=== PATIENT | female | born 1955 | race Caucasian/White ===

== ENCOUNTER → 2016-12-15 | Outpatient (CLI) | payer BC ==
--- NOTE | 2016-12-16 11:54 | XR ---
Thoracic spine HISTORY: Mid back pain 3 views of the thoracic spine Thoracic vertebral bodies show preserved height, alignment, and bone mineralization. There is multile rosario spondylosis. Mild loss of disc height at the intervertebral levels at the midthoracic spine. IMPRESSION: Degenerative disc disease, thoracic MRI may be of benefit.
== END | disposition home or self-care (01) ==
LOC: RADXRMAIN 17:52
PROVIDERS: ATTEND Internal Medicine
DX: M51.34 Other intervertebral disc degeneration, thoracic region (principal)
CPT/HCPCS: 72072

== ENCOUNTER → 2017-10-14 | Outpatient (CLI) | payer BC ==
--- NOTE | 2017-10-18 08:35 | MM ---
Reason for exam: screening (asymptomatic). Last mammogram was performed 1 year ago. History: Patient is postmenopausal. Family history of breast cancer in sister at age 59. Physical Findings: A clinical breast exam by your physician is recommended on an annual basis and results should be correlated with mammographic findings. MG 3D Screening Mammo W/Cad Bilateral CC and MLO view(s) were taken. Prior study comparison: October 07, 2016, bilateral MG 3d screening mammo w/cad. October 06, 2015, bilateral MG screening mammo w CAD. The breast tissue is heterogeneously dense. This may lower the sensitivity of mammography. No significant changes when compared with prior studies. ASSESSMENT: Negative, BI-RAD 1 RECOMMENDATION: Routine screening mammogram of both breasts in 1 year.
== END | disposition home or self-care (01) ==
LOC: RADMAMWWP 07:45
PROVIDERS: ATTEND Obstetrics & Gynecology
DX: Z12.31 Encounter for screening mammogram for malignant neoplasm of breast (principal); Z80.3 Family history of malignant neoplasm of breast
CPT/HCPCS: 77063; G0202

== ENCOUNTER → 2018-06-21 | Outpatient (CLI) | payer BC ==
--- NOTE | 2018-06-21 11:18 | BD ---
EXAMINATION TYPE: Axial Bone Density DATE OF EXAM: 06/21/2018 COMPARISON: NONE CLINICAL HISTORY: Postmenopausal female. Osteoporosis screening. Height: 5 FT 3 IN Weight: 181 FRAX RISK QUESTIONS: Family History (Parent hip fracture): YES History of Fracture in Adulthood: YES RISK FACTORS HISTORY OF: Family History of Osteoporosis: YES Active: YES Postmenopausal woman: AGE 51-52 MEDICATIONS: Osteoporosis Medications: YES Which medication: FOSAMAX How Lon -2YEARS Additional Medications: ASPIRIN,,POTASIUM, FUROSEMIDE,VIT D2,FOSAMAX, NAPROXEN, Additional History: EXAM MEASUREMENTS: Bone mineral densitometry was performed using the [employer] System. Bone mineral density as measured about the Lumbar spine is: ----- L1-L4(G/cm2): 0.980 T Score Values are as follows: ----- L2: -2.5 ----- L3: -1.5 ----- L4: -1.2 ----- L1-L4: -1.7 Bone mineral density has: INCREASED 4.9 % since study of: 2015 Bone mineral density about the R hip (g/cm2): 0.794 Bone mineral density about the L hip (g/cm2): 0.799 T Score values are as follows: -----R Neck: -1.8 -----L Neck: -1.7 -----R Total: -0.9 -----L Total: -0.9 Bone mineral density has: INCREASED 7.2 % since study of: 2015 IMPRESSION: Osteopenia (T Score between -2.5 and -1). There is slightly increased risk of fracture and the patient may be considered for treatment. Re-Screen 2-5 years. NOTE: T-SCORE=SD OF THE YOUNG ADULT MEAN.
== END | disposition home or self-care (01) ==
LOC: RADBDWWP 09:22
PROVIDERS: ATTEND Obstetrics & Gynecology
DX: M85.80 Other specified disorders of bone density and structure, unspecified site (principal); M81.0 Age-related osteoporosis without current pathological fracture
CPT/HCPCS: 77080

== ENCOUNTER → 2018-09-09 | Outpatient (CLI) | payer BC ==
--- NOTE | 2018-09-09 08:42 | MR ---
MR lumbar spine wo con Low back pain Multiplanar, multiecho imaging of the lumbar spine was obtained without contrast on a 3 Kathleen magnet. REFERENCE: Previous study dated 07/23/2016. FINDINGS: Paraspinal soft tissues are unremarkable. Vertebral body height and alignment are maintained. Cord signal is maintained. The conus ends normally at the level of the superior endplate of L2. At T12-L1 and L1-2, no discrete abnormality is seen. At L2-3, the intervertebral foramina are well maintained. There is no significant compressive discopa thy. There are mild hypertrophic changes in the facets. At L3-4, the intervertebral foramina are well maintained. There is no significant compressive discopa thy. There are mild hypertrophic changes and capsulitis in the facets. At L4-5, there is a broad-based disc protrusion extending into the intervertebral foramina and causin g intervertebral foraminal narrowing, worse on the right than the left. There is mild hypertrophic ch roosevelt and capsulitis in the facets. There is mild trefoiling of the thecal sac. At L5-S1, there is a broad-based disc protrusion extending into intervertebral foramina causing bilat eral intervertebral foraminal narrowing. This may have progressed slightly from previous. There are m ild hypertrophic changes in the facets. There is mild trefoiling of the thecal sac. IMPRESSION: 1. BROAD-BASED DISC PROTRUSIONS, L4-5 AND L5-S1 CAUSING BILATERAL INTERVERTEBRAL FORAMINAL NARROWING. 2. DIFFUSE, MILD FACET ARTHROPATHY.
== END | disposition home or self-care (01) ==
LOC: RADMRIMAIN 07:58
PROVIDERS: ATTEND Psychiatry & Neurology Neurology
DX: M99.73 Connective tissue and disc stenosis of intervertebral foramina of lumbar region (principal); M51.27 Other intervertebral disc displacement, lumbosacral region; M46.86 Other specified inflammatory spondylopathies, lumbar region
CPT/HCPCS: 72148

== ENCOUNTER → 2018-11-07 | Outpatient (CLI) | payer BC ==
--- NOTE | 2018-11-07 09:45 | XR ---
EXAMINATION TYPE: XR chest 2V DATE OF EXAM: 11/07/2018 COMPARISON: NONE TECHNIQUE: PA and lateral views submitted. HISTORY: Pain FINDINGS: The lungs are clear and there is no pneumothorax, pleural effusion, or focal pneumonia. Hypertrophi c change of the vertebral column noted. IMPRESSION: 1. No acute process.
== END | disposition home or self-care (01) ==
LOC: RADXRMAIN 08:12
PROVIDERS: ATTEND Internal Medicine
DX: R52 Pain, unspecified (principal)
CPT/HCPCS: 71046

== ENCOUNTER → 2018-11-15 | Outpatient (CLI) | payer BC ==
--- NOTE | 2018-11-17 09:35 | MM ---
Reason for exam: screening (asymptomatic). Last mammogram was performed 1 year and 1 month ago. History: Patient is postmenopausal. Family history of breast cancer in sister at age 59. Physical Findings: A clinical breast exam by your physician is recommended on an annual basis and results should be correlated with mammographic findings. MG 3D Screening Mammo W/Cad Bilateral CC and MLO view(s) were taken. Prior study comparison: October 14, 2017, bilateral MG 3d screening mammo w/cad. October 07, 2016, bilateral MG 3d screening mammo w/cad. The breast tissue is heterogeneously dense. This may lower the sensitivity of mammography. There is chronic nodularity in the right breast medial and posteriorly. Benign oil cysts redemonstrated. No significant changes when compared with prior studies. ASSESSMENT: Benign, BI-RAD 2 RECOMMENDATION: Routine screening mammogram of both breasts in 1 year.
== END | disposition home or self-care (01) ==
LOC: RADMAMWWP 08:21
PROVIDERS: ATTEND Obstetrics & Gynecology
DX: Z12.31 Encounter for screening mammogram for malignant neoplasm of breast (principal); Z80.3 Family history of malignant neoplasm of breast
CPT/HCPCS: 77063; 77067

== ENCOUNTER → 2019-12-17 | Outpatient (CLI) | payer BC ==
--- NOTE | 2019-12-27 10:39 | MM ---
Reason for exam: screening (asymptomatic). Last mammogram was performed 1 year and 1 month ago. History: Patient is postmenopausal. Family history of breast cancer in sister at age 59. Physical Findings: A clinical breast exam by your physician is recommended on an annual basis and results should be correlated with mammographic findings. MG 3D Screening Mammo W/Cad Bilateral CC and MLO view(s) were taken. Prior study comparison: November 15, 2018, bilateral MG 3d screening mammo w/cad. October 14, 2017, bilateral MG 3d screening mammo w/cad. There are scattered fibroglandular densities. Benign appearing bilateral calcifications. No suspicious abnormality. No significant changes when compared with prior studies. ASSESSMENT: Benign, BI-RAD 2 RECOMMENDATION: Routine screening mammogram of both breasts in 1 year.
== END | disposition home or self-care (01) ==
LOC: RADMAMWWP 07:41
PROVIDERS: ATTEND Internal Medicine
DX: Z12.31 Encounter for screening mammogram for malignant neoplasm of breast (principal)
CPT/HCPCS: 77063; 77067

== ENCOUNTER → 2020-12-19 | Outpatient (CLI) | payer MEDICARE ==
--- NOTE | 2020-12-22 08:53 | MM ---
Reason for exam: screening (asymptomatic). Last mammogram was performed 1 year ago. History: Patient is postmenopausal. Family history of breast cancer in sister at age 59. Took hormonal contraceptives for 5 years. Physical Findings: A clinical breast exam by your physician is recommended on an annual basis and results should be correlated with mammographic findings. MG 3D Screening Mammo W/Cad Bilateral CC and MLO view(s) were taken. Prior study comparison: December 17, 2019, bilateral MG 3d screening mammo w/cad. November 15, 2018, bilateral MG 3d screening mammo w/cad. The breast tissue is heterogeneously dense. This may lower the sensitivity of mammography. Stable benign calcifications. There is no discrete abnormality. No significant changes when compared with prior studies. ASSESSMENT: Benign, BI-RAD 2 RECOMMENDATION: Routine screening mammogram of both breasts in 1 year.
== END | disposition home or self-care (01) ==
LOC: RADMAMWWP 15:57
PROVIDERS: ATTEND Internal Medicine
DX: Z12.31 Encounter for screening mammogram for malignant neoplasm of breast (principal)
CPT/HCPCS: 77063; 77067

== ENCOUNTER → 2021-02-02 | Outpatient (CLI) | payer MEDICARE ==
--- NOTE | 2021-02-02 16:11 | BD ---
EXAMINATION TYPE: Axial Bone Density DATE OF EXAM: 02/02/2021 COMPARISON: 06.21.2018 CLINICAL HISTORY: 65 YR OLD FEMALE.....ICD-10 CODE: M85.88 DISORDERS OF BONE Height: 62.8 Weight: 163 FRAX RISK QUESTIONS: Family History (Parent hip fracture): YES History of Fracture in Adulthood: YES RISK FACTORS HISTORY OF: TIB FIB FX WITH SURGICAL REPAIR History of Wrist Fracture: LT WRIST, CASTED Family History of Osteoporosis: YES, MOTHER WITH HIP BREAK Postmenopausal woman: YES, AT 53 YRS OLD Hyperparathyroidism: NO Adrenal Insufficiency: NO MEDICATIONS: Additional Medications: REFLUX MEDS, Additional History: REFLUX, ARTHRITIS EXAM MEASUREMENTS: Bone mineral densitometry was performed using the [employer] System. Bone mineral density as measured about the Lumbar spine is: ----- L1-L4(G/cm2): 1.018 T Score Values are as follows: ----- L1: -1.8 ----- L2: -2.3 ----- L3: -1.2 ----- L4: -0.6 ----- L1-L4: -1.3 Bone mineral density has: Increased 4.5% since study of: 06.21.2018 Bone mineral density about the R hip (g/cm2): 0.883 Bone mineral density about the L hip (g/cm2): 0.903 T Score values are as follows: -----R Neck: -1.7 -----L Neck: -1.6 -----R Total: -1.0 -----L Total: -0.8 Bone mineral density has: REMAINED THE SAME AT 0.0% since study of: 06.21.2018 FRAX%s: THERE IS A 28.9% CHANCE FOR A MAJOR OSTEOPOROTIC FX AND A 2.1% CHANCE FOR HIP......PROBABI LITY FOR FX IN 10 YRS TIME IMPRESSION: Osteopenia (T Score between -2.5 and -1). There is slightly increased risk of fracture and the patient may be considered for treatment. Re-Screen 2-5 years. NOTE: T-SCORE=SD OF THE YOUNG ADULT MEAN.
== END ==
LOC: RADBDWWP 13:10
PROVIDERS: ATTEND Obstetrics & Gynecology
DX: M85.89 Other specified disorders of bone density and structure, multiple sites (principal)
CPT/HCPCS: 77080

== ENCOUNTER 2023-06-14 09:31 | Day surgery (SDC) | payer MEDICARE ==
[2023-06-08 15:44] VITALS: BMI 31.8
[~2023-06-14 09:31] MED LIST: LACTATED RINGERS 1,000 ML IV SCH; LIDOCAINE 1% (10MG/ML) FOR IV START INTRADERMA PRN; ONDANSETRON 4 MG/2 ML VIAL IVP PRN
[2023-06-14 10:00] VITALS: TEMP 97.1
[2023-06-14] MEDS ORDERED: PROPOFOL 10 MG/ML 20 ML VIAL IV ONE (10:17)
[2023-06-14] MEDS ORDERED: LIDOCAINE 2% INJ 20 MG/ML (2 ML VIAL) ONE (10:17)
--- NOTE | 2023-06-14 10:32 | P.GSHP ---
History of Present Illness H&P Date: 06/14/23 Chief Complaint: Colon cancer screening 68-year-old female here for colonoscopy. Last colonoscopy 9 years ago. No bowel complaints. No family history of colon cancer. Past Medical History Past Medical History: No Reported History, GERD/Reflux, Musculoskeletal Disorder Additional Past Medical History / Comment(s): Osteoporosis,has gallstones,Diverticulitis - mild. covid infection 2020 History of Any Multi-Drug Resistant Organisms: None Reported Past Surgical History: Orthopedic Surgery, Tubal Ligation Additional Past Surgical History / Comment(s): 3x L foot surgery, bilateral bunion removal Past Anesthesia/Blood Transfusion Reactions: No Reported Reaction Additional Past Anesthesia/Blood Transfusion Reaction / Comment(s): no hx blood transfusion Smoking Status: Never smoker - Past Family History Mother Family Medical History: Cancer Additional Family Medical History / Comment(s): lung Father Family Medical History: Diabetes Mellitus Additional Family Medical History / Comment(s): living at age 93 Medications and Allergies Home Medications Medication Instructions Recorded Confirmed Type Calcium Carbonate [Tums] 500 mg PO DAILY PRN 06/08/23 06/08/23 History Pantoprazole [Protonix] 40 mg PO DAILY 06/08/23 06/14/23 History Pantoprazole [Protonix] 40 mg PO HS PRN 06/08/23 06/08/23 History Zinc Gluconate [Zinc] 50 mg PO DAILY 06/08/23 06/14/23 History Allergies Allergy/AdvReac Type Severity Reaction Status Date / Time No Known Allergies Allergy Verified 06/14/23 09:48 Surgical - Exam Vital Signs Temp Pulse Resp BP Pulse Ox 97.1 F L 74 16 132/75 99 06/14/23 09:55 06/14/23 09:55 06/14/23 09:55 06/14/23 09:55 06/14/23 09:55 Physical exam: General: Well-developed, well-nourished HEENT: Normocephalic, sclerae nonicteric Abdomen: Nontender, nondistended Extremities: No edema Neuro: Alert and oriented Assessment and Plan (1) Colon cancer screening Narrative/Plan: Will proceed with colonoscopy at this time. Current Visit: No Status: Acute Code(s): Z12.11 - ENCOUNTER FOR SCREENING FOR MALIGNANT NEOPLASM OF COLON SNOMED Code(s): 944329930
--- NOTE | 2023-06-14 10:48 | P.PCN ---
Date of Procedure: 06/14/23 Procedure(s) Performed: PREOPERATIVE DIAGNOSIS: Colon cancer screening POSTOPERATIVE DIAGNOSIS: Normal exam PROCEDURE: Colonoscopy ANESTHESIA: MAC SURGEON: Neal Figueroa M.D. SPECIMENS: None ENDOSCOPIC PROCEDURE: The patient was placed on the endoscopy table in the left decubitus position. The Olympus colonoscope was inserted into the anus and passed under direct visualization to the base of the cecum. The appendiceal orifice was visualized. From that point the scope was slowly withdrawn inspecti ng all surfaces carefully. There were no neoplastic inflammatory or polypoid lesions throughout the cecum, ascending, transverse, descending, sigmoid and rectum. There was no visible diverticulosis noted. Digital rectal examination was normal. The patient was taken to the recovery room in stable condition per anesthesia guidelines. RECOMMENDATIONS: Resume diet. Repeat colonoscopy in 10 years
[2023-06-14 10:57] VITALS: RESP 14
[2023-06-14 11:18] VITALS: BP 156/78; PULSE 61
== END 2023-06-14 12:14 | disposition home or self-care (01) ==
LOC: ORWHC2ENDO 09:31
PROVIDERS: ATTEND Surgery
DX: Z12.11 Encounter for screening for malignant neoplasm of colon (principal); K21.9 Gastro-esophageal reflux disease without esophagitis; M81.0 Age-related osteoporosis without current pathological fracture; Z98.51 Tubal ligation status; Z86.16 Personal history of COVID-19; Z98.890 Other specified postprocedural states; Z80.1 Family history of malignant neoplasm of trachea, bronchus and lung; Z83.3 Family history of diabetes mellitus; Z79.899 Other long term (current) drug therapy
CPT/HCPCS: J2704; J2001; G0121

== ENCOUNTER → 2024-01-04 | Outpatient (CLI) | payer MEDICARE ==
--- NOTE | 2024-01-04 21:09 | BD ---
EXAMINATION TYPE: Axial Bone Density DATE OF EXAM: 01/04/2024 CLINICAL HISTORY: 68 years old Female. ICD-10 CODE: M85.88 OT DISRD OF BONE DENSITY Height: 62.5 Weight: 172.9 FRAX RISK QUESTIONS: Alcohol (3 or more units per day): no Family History (Parent hip fracture): mother Glucocorticoids (More than 3mos): no History of Fracture in Adulthood: foot, wrist Secondary Osteoporosis: 1. Type 1 Diabetes: no 2. Hyperthyroidism: no 3. Menopause before 45: no 4. Malnutrition: no 5. Chronic liver disease: no Rheumatoid Arthritis: no Current Tobacco Use: no RISK FACTORS HISTORY OF: Hip Fracture (Right/Left): no Spine Fracture: no History of Wrist Fracture: Lt Wrist Surgery to Spine/Hip(right/left)/Wrist (right/left): no MEDICATIONS: Thyroid Medications: no Osteoporosis Medications: no EXAM MEASUREMENTS: Bone mineral densitometry was performed using the [employer] System. Bone mineral density as measured about the Lumbar spine is: ----- L1-L4(G/cm2): 1.038 T Score Values are as follows: ----- L1: -1.4 ----- L2: -1.7 ----- L3: -1.4 ----- L4: -0.4 ----- L1-L4: -1.2 Z Score Values are as follows: ----- L1: -0.3 ----- L2: -0.5 ----- L3: -0.2 ----- L4: 0.8 ----- L1-L4: 0.0 Bone mineral density has: increased 2.0 % since study of: 02/02/2021 Bone mineral density about the R hip (g/cm2): 0.862 Bone mineral density about the L hip (g/cm2): 0.896 T Score values are as follows: -----R Neck: -1.9 -----L Neck: -1.5 -----R Total: -1.2 -----L Total: -0.9 Z Score values are as follows: -----R Neck: -0.6 -----L Neck: -0.2 -----R Total: -0.1 -----L Total: 0.1 Bone mineral density has: decreased -1.6 % since study of: 02/02/2021 FRAX%s: The graph provided illustrates a 27.9 % chance for a major osteoporotic fx and a 4.0% chance for the hips probability for fx in 10 years time. IMPRESSION: Osteopenia (T Score between -2.5 and -1). There is slightly increased risk of fracture and the patient may be considered for treatment. Re-Screen 2-5 years. NOTE: T-SCORE=SD OF THE YOUNG ADULT MEAN.
--- NOTE | 2024-01-05 15:14 | MM ---
Reason for Exam: Screening (asymptomatic). Last screening mammogram was performed 12 month(s) ago. Patient History: Menarche at age 17. First Full-Term at age 22. Postmenopausal. Patient used Hormonal Contraceptives for 5 years. Sister had breast cancer, age 59. Risk Values: Roxana 5 year model risk: 3.0%. NCI Lifetime model risk: 9.9%. Prior Study Comparison: 12/19/2020 Bilateral Screening Mammogram, [facility]. 01/01/2022 Bilateral Screening Mammogram, [facility]. 01/03/2023 Bilateral MG 3D screening mammo w/cad, [facility]. Tissue Density: The breast tissue is heterogeneously dense. This may lower the sensitivity of mammography. Findings: Analyzed By CAD. There is no suspicious group of microcalcifications or new suspicious mass. Benign-appearing calcifications bilaterally. Overall Assessment: Benign, BI-RAD 2 Management: Screening Mammogram of both breasts in [address] [facility] will attempt to contact patient to return for supplemental views and ultrasound if indicated. Patient should continue monthly self-breast exams. A clinical breast exam by your physician is recommended on an annual basis. This exam should not preclude additional follow-up of suspicious palpable abnormalities. Note on Roxana scores and lifetime risk: 1. A Roxana score greater than 3% is considered moderate risk. If this is the case, consider specialist referral to assess eligibility for a risk reducing agent. 2. If overall lifetime risk for the development of breast cancer is 20% or higher, the patient may qualify for future screening with alternating mammogram and breast MRI. Electronically signed and approved by: Asad Briggs DO
== END | disposition home or self-care (01) ==
LOC: RADBDWWP 12:41
PROVIDERS: ATTEND Obstetrics & Gynecology
DX: Z12.31 Encounter for screening mammogram for malignant neoplasm of breast (principal); M85.89 Other specified disorders of bone density and structure, multiple sites
CPT/HCPCS: 77063; 77067; 77080

== ENCOUNTER → 2025-01-22 | Outpatient (CLI) | payer MEDICARE ==
[2025-01-22 09:02] VITALS: BP 132/82; PULSE 60; RESP 16; TEMP 97
--- NOTE | 2025-01-22 09:43 | P.HPOB ---
History of Present Illness H&P Date: 01/22/25 Chief Complaint: Patient is here for her routine gynecologic exam. This is a 69-year-old with an LMP of 2006. Patient is here to establish with this office. She was last seen by Dr. Schuster in 2022. She previously saw Dr. Schuster for her ongoing gynecologic care. She is without gynecologic complaints and denies any postmenopausal bleeding. Review of Systems The patient has gained 4 pounds over the last year. She denies respiratory, cardiac, or G.I. problems. Past Medical History Past Medical History: GERD/Reflux, Musculoskeletal Disorder Additional Past Medical History / Comment(s): Osteopenia ,has gallstones,Diverticulitis - mild. 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 History of Any Multi-Drug Resistant Organisms: None Reported Past Surgical History: Orthopedic Surgery, Tubal Ligation Additional Past Surgical History / Comment(s): 3x L foot surgery, bilateral bunion removal. Right surgery. Colonoscopy 2022(next after 10yr). Past Anesthesia/Blood Transfusion Reactions: No Reported Reaction Additional Past Anesthesia/Blood Transfusion Reaction / Comment(s): no hx blood transfusion Past Psychological History: No Psychological Hx Reported Smoking Status: Former smoker Past Alcohol Use History: Rare (1 drink per year.) Additional Past Alcohol Use History / Comment(s): Quit Smoking in 1996. Past Drug Use History: None Reported Additional History: She has been since 1974 and is no longer sexually active. She is retired and previously worked in [employer]. - Past Family History Mother Family Medical History: Cancer Additional Family Medical History / Comment(s): lung cancer. . No family history of cancer of the ovaries, uterus, or colon. Father Family Medical History: Diabetes Mellitus Additional Family Medical History / Comment(s): . Sister(s) Family Medical History: Cancer Additional Family Medical History / Comment(s): Sister had breast cancer and 1 sister had cervical cancer(). Medications and Allergies Home Medications Medication Instructions Recorded Confirmed Type Calcium Carbonate [Tums] 500 mg PO DAILY PRN 06/08/23 06/08/23 History Pantoprazole [Protonix] 40 mg PO DAILY 06/08/23 06/14/23 History Pantoprazole [Protonix] 40 mg PO HS PRN 07/19/23 07/19/23 History Zinc Gluconate [Zinc] 50 mg PO DAILY 06/08/23 06/14/23 History Cholecalciferol (Vitd3)/Vit K2 1 each PO DAILY 01/22/25 01/22/25 History [Vit D3-Vit K2 125-100 Mcg Sfgl] Allergies Allergy/AdvReac Type Severity Reaction Status Date / Time No Known Allergies Allergy Verified 06/14/23 09:48 Exam Vital Signs Temp Pulse Resp BP Pulse Ox 01/22/25 08:56 97.0 F L 60 16 132/82 100 Intake and Output 01/21/25 01/22/25 01/22/25 22:59 06:59 14:59 Other: Weight 81.193 kg Height 5 feet 4 inches, weight 179 pounds, BMI 30.7. This is a well-developed well-nourished white female who is alert and oriented times 3 in no acute distress. HEENT: Within normal limits. NECK: Supple without mass or thyromegaly. CHEST AND LUNGS: Clear to auscultation. HEART: Regular rate and rhythm. BREASTS: Are without mass or discharge. AXILLARY EXAM: Negative for adenopathy. BACK: Negative for CVA tenderness. ABDOMEN: Soft, nontender, without palpable masses. PELVIC EXAM: Normal external genitalia with mild atrophy. Cervix and vagina appear normal with mild atrophy. There is no unusual discharge. There is no evidence of prolapse. The uterus is midposition, nongravid size and nontender. There are no palpable adnexal masses or tenderness. RECTAL EXAM: Rectovaginal exam is negative for mass or tenderness and is negative for occult blood. EXTREMITIES: Nontender. IMPRESSION: 1. 39-year-old menopausal female with normal gynecologic exam. 2. History of osteopenia. PLAN: 1. Pap smear cotest was performed. From Dr. Schuster's records, he had negative Pap smears in 2017 and on 01/27/2021. She denies any history of cervical problems. If the Pap smear cotest is negative, we will plan on discontinuing Pap smears. 2. Self breast awareness was discussed with the patient. We have also discussed symptoms associated with inflammatory breast cancer. 3. Screening mammogram is scheduled for 02/22/25. The order slip was given to the patient for this. 4. Osteoporosis prevention was discussed. I have stressed the importance of adequate calcium, vitamin D and regular exercise. Recommended amounts of calcium and vitamin D were also discussed. Last bone density test was on 01/04/2024. We will plan on repeating the bone density test in 1 year. 5. She was advised to return in one year for her annual well woman exam.
== END ==
LOC: WWCWWP 08:26
PROVIDERS: ATTEND Obstetrics & Gynecology
DX: Z12.31 Encounter for screening mammogram for malignant neoplasm of breast (principal); N95.1 Menopausal and female climacteric states; Z87.39 Personal history of other diseases of the musculoskeletal system and connective tissue

== ENCOUNTER → 2025-02-22 | Outpatient (CLI) | payer MEDICARE ==
--- NOTE | 2025-02-22 13:58 | MM ---
Reason for Exam: Screening (asymptomatic). Last mammogram was performed 1 year(s) and 2 month(s) ago. Patient History: Menarche at age 17. First Full-Term at age 22. Postmenopausal. Patient used Hormonal Contraceptives for 5 years. Sister had breast cancer, age 59. Risk Values: Roxana 5 year model risk: 3.0%. NCI Lifetime model risk: 9.5%. Prior Study Comparison: 01/01/2022 Bilateral Screening Mammogram, [facility]. 01/03/2023 Bilateral MG 3D screening mammo w/cad, [facility]. 01/04/2024 Bilateral MG 3D screening mammo w/cad, [facility]. Tissue Density: The breasts are heterogeneously dense, which may obscure small masses. Findings: Analyzed By CAD. There is no suspicious group of microcalcifications or new suspicious mass in either breast. Overall Assessment: Benign, BI-RAD 2 Management: Screening Mammogram of both breasts in 1 year. . Patient should continue monthly self-breast exams. A clinical breast exam by your physician is recommended on an annual basis. This exam should not preclude additional follow-up of suspicious palpable abnormalities. Note on Roxana scores and lifetime risk: 1. A Roxana score greater than 3% is considered moderate risk. If this is the case, consider specialist referral to assess eligibility for a risk reducing agent. 2. If overall lifetime risk for the development of breast cancer is 20% or higher, the patient may qualify for future screening with alternating mammogram and breast MRI. [facility], , 02/22/2025 9:06 AM. Electronically signed and approved by: Lio Alatorre M.D. Radiologis
== END | disposition home or self-care (01) ==
LOC: RADMAMWWP 08:58
PROVIDERS: ATTEND Internal Medicine
DX: Z12.31 Encounter for screening mammogram for malignant neoplasm of breast (principal); R92.333 Mammographic heterogeneous density, bilateral breasts; Z78.0 Asymptomatic menopausal state; Z80.3 Family history of malignant neoplasm of breast; Z92.0 Personal history of contraception
CPT/HCPCS: 77063; 77067